=== PATIENT | male | born 1980 | race Hispanic/Latino ===

== ENCOUNTER 2020-12-04 19:34 | Emergency (ER) | payer OTHER ==
[~2020-12-04] VITALS: Ht 182.9 cm; Wt 70.3 kg
[2020-12-04 19:51] VITALS: BP 142/86
== END 2020-12-04 20:18 | disposition left against medical advice (07) ==
LOC: ER 19:34
DX: H92.02 Otalgia, left ear (principal); Z53.21 Procedure and treatment not carried out due to patient leaving prior to being seen by health care provider